=== PATIENT | female | born 1930 | race Caucasian/White ===

== ENCOUNTER 2016-10-06 08:13 | Day surgery (SDC) | payer MEDICARE, OTHER ==
[~2016-10-06] VITALS: Ht 162.6 cm; Wt 55.0 kg
[~2016-10-06 08:13] MED LIST: AMLO5TAB2 PO; LIDOCAINE 1% (10mg/ml) 2ml SDV INJ ONE; LR 1,000 ML IV SCH; PRED10DR15 OP; PROPOFOL 500mg 50 ML IV ONE
--- OUTSIDE RECORDS SUMMARY | 2016-10-06 08:18 | XMS REPORT | Continuity of Care Document ---
Author Author [facility] Organization [facility] Address Unknown Phone Unavailable Support Name Relationship Address Phone MISAEL FIGUEREDO II, MD Caregiver [address] [place] [address] Unavailable ARCHIE GONZALES MD Caregiver [address] [place] [address] Unavailable ARCHIE GONZALES MD Caregiver [address] [place] [address] Unavailable JASVIRMARCELINOSANTANA Next Of Kin [address] [place] [address] Insurance Providers Guarantor ReginaMarlys Address [address] [facility] [address] [place] [address] Email DENIED/NO TO PT PORT Payer [employer] Policy Number [id number] Subscriber's Name Marlys Tapia Relationship 18 Self Group Number PLANE Effective Date 96 Payer Medicare Policy Number [id number] Subscriber's Name Marlys Tapia Relationship 18 Self Effective Date 95 Advance Directives Directive Response Recorded Date/Time Ordered Resuscitation Status Full Code 11/30/15 12:01pm Resuscitation Documents on File Yes 12/01/15 9:21am DPOA for Healthcare Only Yes 12/01/15 9:21am Problems Active Problems Medical Problem Onset Date Status Degenerative arthritis of hip Unknown Chronic Hypertension Unknown Medications Current Home Medications Medication Dose Units Route Directions Days Qty Instructions Start Date Acetaminophen (Tylenol) 325 Mg Tablet 650 Mg Oral Four Times Daily 100 Tablet 12/02/15 Amlodipine Besylate 5 Mg Tablet 5 Mg Oral Daily 11/12/15 Aspirin (Aspirin Ec) 325 Mg Tablet. 325 Mg Oral Twice A Day 84 Tablet 12/02/15 Polyethylene Glycol 3350 (Healthylax) 17 Gm Powd.pack 17 Gm Oral Daily 30 Packet 12/02/15 Tramadol Hcl (Ultram) 50 Mg Tablet 50-100 Mg Oral Every 4 Hours as needed for Pain 60 Tablet 06/22/16 Past Home Medications Medication Directions Ordered Status Benazepril/Hydrochlorothiazide (Benazepril-Hctz 20-12.5 Mg Tab) 1 Each Tablet, 1 Tab Oral Daily 11/12/15 Discontinued Social History Social History Problem Response Recorded Date/Time Onset Date Status Chewing Tobacco Status No 12/01/2015 9:24am Not Applicable Not Applicable Hx Substance Use No 12/01/2015 9:24am Not Applicable Not Applicable Hx Alcohol Use No 12/01/2015 9:24am Not Applicable Not Applicable Has the pt used tobacco in the last 12 months No 12/01/2015 9:24am Not Applicable Not Applicable Query Response Start Date Stop Date Smoking Status Never smoker Hospital Discharge Instructions Instructions: Care Instructions: Reason for Hospitalization: Left total hip I was in the hospital because (patient own words): LEFT HIP REPLACEMENT Discharge Diet: regular Discharge Activity: WEIGHT BEARING TOLERATED Follow Up Appointments: Please make a follow up appointment with your PRIMARY CARE PROVIDER by next Monday to re evaluate your Benzapril/HCTZ. This was held due to hypotension and mild hyponatremia Pending Lab / Results: Follow up w/ your PCP Patient Instructions: draw a BMP 12/11/15 to follow up on hyponatremia Condition at time of discharge: Good Plan of Care Discharge Date 12/02/15 3:22pm Disposition 01 DISCHARGED HOME, SELF-CARE Instructions/Education Provided [facility] Postop Instructions DI for Hyponatremia Hyponatremia-Adult Prescriptions See Medication Section Additional Instructions/Education draw a BMP on12/11/15 and follow up with your PCP on hyponatremia and use of Benazapril/HCTZ. Care Plan and Goals See Discharge Instructions Section Functional Status Query Response Date Recorded Mobility Status Ambulatory w/assist December 02, 2015 1:31pm Assistive Devices Front Wheeled Walker December 02, 2015 1:31pm Activity Limitations Weakness December 02, 2015 1:31pm Feeding Ability Independent December 02, 2015 1:31pm Toileting Ability Assist December 01, 2015 2:21pm Grooming Ability Assist December 02, 2015 1:31pm Dressing Ability Assist December 02, 2015 1:31pm Driving Ability Dependent December 02, 2015 1:31pm Housework Ability Assist December 02, 2015 1:31pm Meal Preparation Ability Assist December 02, 2015 1:31pm Stair Climbing Ability Assist December 02, 2015 1:31pm Ability to complete ADL's impeded by No change December 02, 2015 1:31pm Cognitive/Perceptual Impairments Impaired vision December 02, 2015 1:31pm Visual Assistive Devices Glasses December 01, 2015 2:21pm Allergies, Adverse Reactions, Alerts No known allergies. Immunizations Query Response on File Recorded Date/Time Hx Influenza Vaccination Y FALL 201412/01/15 9:24am Hx Pneumococcal Vaccination Y SEVERAL YEARS AGO 12/01/15 9:24am Hx Influenza Vaccination Y fall 201412/01/15 9:24am Vital Signs Acute Vital Signs Vital Response Date/Time Temperature (Fahrenheit) 95.5 deg F (96.8 - 99.1) 12/02/2015 12:06pm Temperature (Calculated Celsius) 35.26773 degrees C (36.0 - 37.3) 12/02/2015 12:06pm Temperature Source Oral 12/02/2015 12:06pm Pulse Rate (adult) 70 bpm (60 - 100) 12/02/2015 12:06pm Respiratory Rate 14 breaths/min (10 - 20) 12/02/2015 12:06pm O2 Sat by Pulse Oximetry 99 % (90 - 100) 12/02/2015 12:06pm Oxygen Delivery Method Room Air 12/02/2015 12:06pm Oxygen Delivery Method Room Air 12/01/2015 4:20pm Blood Pressure 102/58 mm Hg 12/02/2015 12:06pm Blood Pressure Source Automatic Cuff 12/02/2015 12:06pm Height (Feet) 5 feet 12/02/2015 9:01am Height (Inches) 5.00 inches 12/02/2015 9:01am Weight (Kilograms) 57.000 kg 12/02/2015 12:55pm Body Mass Index (BMI) 20.7 12/01/2015 9:00am Results Laboratory Results Test Name Result Units Flags Reference Collection Date/Time Result Date/ Time Comments White Blood Count 12.5 T/MM3 H 4.5-11.0 12/02/2015 4:39am 12/02/2015 5: 08am Red Blood Count 3.02 M/MM3 L 4.00-5.20 12/02/2015 4:39am 12/02/2015 5: 08am Hemoglobin 9.1 GM/DL L 12-16 12/02/2015 4:39am 12/02/2015 5:08am Hematocrit 28.4 % L 36-46 12/02/2015 4:39am 12/02/2015 5:08am Mean Corpuscular Volume 94.0 UM3 80-100 12/02/2015 4:39am 12/02/2015 5: 08am Mean Corpuscular Hemoglobin 30.1 UUG 26-34 12/02/2015 4:39am 2015 5:08am Mean Corpuscular Hemoglobin Concent 32.0 GM/DL 31-37 12/02/2015 4:39am 12/02/2015 5:08am RDW Standard Deviation 43.6 FL 36.9-50.2 12/02/2015 4:39am 12/02/2015 5 :08am Platelet Count 181 T/MM3 130-400 12/02/2015 4:39am 12/02/2015 5:08am Mean Platelet Volume 10.4 UM3 9.4-12.4 12/02/2015 4:39am 12/02/2015 5: 08am Icterus Index < 2 0-7 12/02/2015 4:39am 12/02/2015 5:38am Chemistry Specimen Hemolysis < 15 0-25 12/02/2015 4:39am 12/02/2015 5 :38am 0-25: Specimen Exhibited No Hemolysis. Turbidity < 20 0-20 12/02/2015 4:39am 12/02/2015 5:38am Sodium Level 132 MEQ/L D L 134-144 12/02/2015 4:39am 12/02/2015 6:10am Potassium Level 4.6 MEQ/L 3.6-5 12/02/2015 4:39am 12/02/2015 5:38am Chloride Level 104 MEQ/L 98-107 12/02/2015 4:39am 12/02/2015 5:38am Carbon Dioxide Level 25 MEQ/L 22-30 12/02/2015 4:39am 12/02/2015 5: 38am Anion Gap 3 MEQ/L L 5-15 12/02/2015 4:39am 12/02/2015 5:38am Blood Urea Nitrogen 19.0 MG/DL H 7-17 12/02/2015 4:39am 12/02/2015 5: 38am Creatinine 0.7 MG/DL 0.7-1.2 12/02/2015 4:39am 12/02/2015 5:38am BUN/Creatinine Ratio 27 RATIO H 6-26 12/02/2015 4:39am 12/02/2015 5: 38am Glomerular Filtration Rate Calc 80 12/02/2015 4:39am 12/02/2015 5: 38am Glucose Level 111 MG/DL H 65-110 12/02/2015 4:39am 12/02/2015 5:38am Calculated Osmolality 258 MOSM/KG L 261-280 12/02/2015 4:39am 2015 5:38am Calcium Level 9.0 MG/DL 8.4-10.2 12/02/2015 4:39am 12/02/2015 5:38am Name: MARLYS TAPIA Unit #: [id number] : [id number] Sex: F Admit Date: 12/01/15 Loc / Svc: SRG Discharge Date: DIAGNOSTIC IMAGING REPORT Report #: [id number] [place] [place], [place] Indication: ITS.REASON: POSTOP left hip replacement PROCEDURE: PELVIS W/1 VIEW LT HIP: Encounter: Initial Comparison: None Findings: Postoperative changes of left total hip replacement are seen. There is expected postoperative subcutaneous gas. No evidence of hardware failure or acute fracture. No retained radiopaque surgical instruments or sponges seen. Impression: New left total hip prosthesis without evidence of immediate complication. . Procedures Procedure Status Date Provider(s) CHEST X-RAY 2VW FRONTAL&LATL Completed 11/06/15 Total replacement of left hip joint Completed 12/01/15 ARCHIE GONZALES MD Encounters Encounter Location Arrival/Admit Date Discharge/Depart Date Attending Provider Discharged Inpatient [facility] 12/01/15 8:42am 12/02/15 3:22pm ARCHIE GONZALES MD Registered Clinic [facility] 11/06/15 11:00am MISAEL FIGUEREDO II, MD
[2016-10-06 08:20] VITALS: BP 162/81; PULSE 74; RESP 16; TEMP 97.2; O2SAT 96
[2016-10-06 08:39] VITALS: Ht 162.6 cm; Wt 55.0 kg
--- NOTE | 2016-10-06 08:43 | ANESPREOP ---
Anesthesia Record Date and Time DATE: 10/06/16 TIME: 08:40 Pre-Op Diagnosis History of polyps Proposed Surgical Procedure COLONOSCOPY NPO since: Midnight Allergies: Coded Allergies: No Known Allergies (Verified , 02/08/08) Ht/Wt/BMI Height: 5 ' 5.00 " Weight: kg BMI: kg/m2 Vital Signs Date Time Temp Pulse Resp B/P Pulse Ox O2 Delivery O2 Flow Rate FiO2 10/06/16 08:20 97.2 74 16 162/81 96 Room Air Medications Inpatient Medications Current Medications Medications (Trade) Dose Ordered Sig/Velasquez Start Time Stop Time Status Last Admin Dose Admin Lactated Ringer's (Lactated Ringers) 1,000 ml @ 50 mls/hr Q20H 10/06/16 07:00 Amlodipine Besylate (Amlodipine Besylate) 5 Mg Tablet, 5 MG PO DAILY, (Reported) Last Taken: on 10/06/16 0700 Prednisolone Acetate (Omnipred) 10 Ml Drops.susp, 1 DROP OP QID, (Reported) Last Taken: on 10/06/16 0700 Currently on Beta Tammie: No Medical/Surgical History Anesthesia PMH: Reports: *Hypertension, Arthritis (LEFT HIP), Hyperlipidemia, Denies: *Angina, *Diabetes, *VA, Anesthesia Reactions (NO KNOWN AIRWAY ISSUES), Blood Transfusion Reac, CHF, Cancer, Clotting Problems, Deep Vein Thrombosis, Glaucoma, Malignant Hyperthermia, Renal Disease, Sleep Apnea, Thyroid Disease Smoking Status: Never smoker Has pt. smoked today?: No Use Chewing Tobacco?: No Second Hand Exposure: No Substance Use Type: does not use Alcohol Intake: none HX of Last Menstrual Period: AGE 54 Past Surgical History Orthopedic Surgeries: Yes - KHUSHI BUNIONECTOMIES; HAMMERTOE,L TKA Abdominal Surgeries: Genitourinary Surgeries: Cardiac Surgeries: Endocrine Surgeries: Reproductive Surgeries: Yes - BENIGN MASS LT BREAST Neurological Surgeries: Ear Surgeries: Nose Surgeries: Throat Surgeries: Other Surgeries: Yes - COLONOSCOPYS Anesthesia Adverse Reactions: FOUND none Family Hx of Anesthesia Advers: none Hx of Motion Sickness: No Pertinent Findings EKG Rhythm: Sinus Rhythm Physical Exam Respiratory: Lungs clear Cardiovascular: FOUND Regular rate, rhythm Airway Assessment Mallampati Score: II TMD: 3 Fingerbreadths Neck Extension: Fair Teeth: Upper Dentures, Partial Lower Dentures Overall Assessment: No Airway Concerns ASA: 2 Plan Anesthesia Plan: TIVA Discussion Discussed risks/options/alternatives of anesthesia and questions answered. Patient consents. Nursing pain assessment noted. Attestation Statement Prior to the delivery of any anesthetic medication, I examined the patient, developed the plan, obtained the patient's consent and discussed the risk and benefits of the procedure with the patient/guardian. RADHA CARROLL SENIOR REPORT DEVELOPER Oct 06, 2016 08:43
[2016-10-06 10:28] VITALS: BP 90/56; PULSE 61; RESP 16; TEMP 98; O2SAT 98
[2016-10-06 10:38] VITALS: BP 94/50
[2016-10-06 10:45] VITALS: BP 99/57; PULSE 55; RESP 18; O2SAT 98
--- NOTE | 2016-10-06 10:50 | ANESPO ---
Post-Op Note Date 10/06/16 Time: 10:50 Status Pt Participated in Evaluation: Pt participated in person Vital Signs Date Time Temp Pulse Resp B/P Pulse Ox O2 Delivery O2 Flow Rate FiO2 10/06/16 10:45 55 18 99/57 98 Room Air 10/06/16 10:28 98.0 6.00 Respiratory Function: Airway patent Cardiovascular Function: Regular pulse Telemetry Pattern: SR Mental Status: Alert/oriented Pain Level Intensity: 0 Unable to Assess Pain Due To: Pt Sleeping Hydration: IV infusing Complications during Recovery None apparent Follow-Up Instructions Instructions Per Surgeon RADHA CARROLL CRNA Oct 06, 2016 10:50
[2016-10-06 11:01] VITALS: BP 140/66; PULSE 62; RESP 16; O2SAT 99
[2016-10-06 11:15] VITALS: BP 140/76; PULSE 60; RESP 17; O2SAT 97
--- NOTE | 2016-10-06 19:50 | OPNOTEF ---
DATE OF PROCEDURE: 10/06/2016 SURGEON: Chris Ferreira MD PREOPERATIVE DIAGNOSIS Family history for colon cancer within a first degree relative. POSTOPERATIVE DIAGNOSIS Family history for colon cancer within a first degree relative, normal colonoscopy. PROCEDURE: Colonoscopy. ANESTHESIA: TIVA BRIEF HISTORY/INDICATIONS Marlys is an 86-year-old female patient of mine who was seen for comprehensive exam. We discussed her family history of colon cancer along with her life expectancy and decided to proceed with a colonoscopy today. Please refer to office notes for details. FINDINGS Upon colonoscopy, there was no evidence for angiodysplastic lesions, polyps, diverticula or delma malignancies. DESCRIPTION OF PROCEDURE After informed consent was obtained, the patient was brought to the endoscopy suite and placed on the table in left lateral decubitus position. The patient subsequently underwent total intravenous anesthesia by the nurse park maintenance technician per my request. Next, a digital rectal examination was performed. Normal sphincter tone. No rectal masses were appreciated. An Olympus colonoscope was inserted in the anus and advanced with the lumen of the colon under direct visualization at all times until the cecum was ascertained. Triangulation of the tenia coli, ileocecal valve and appendiceal lumen were all visualized. The scope was then slowly withdrawn, again while maintaining visualization of the lumen at all times. As stated above, the entire colon was without evidence for angiodysplastic lesions, polyps, diverticula or delma malignancies. The scope continued to be withdrawn until it was brought back into the patient's anal verge. A J-maneuver was then performed. No worrisome perianal pathology was noted. The scope was subsequently withdrawn. The patient tolerated the procedure without difficulty and was sent back to the preop area in stable condition. Secondary to the absence of findings upon this colonoscopy, the patient would not undergo a repeat colonoscopy until five years from now based on her family history. That would make Marlys 89 years old and I think it is very unlikely we will follow through with that colonoscopy. Today she had no polyps, no signs of precancerous lesions. MINISTERIO
== END 2016-10-06 11:35 | disposition home or self-care (01) ==
LOC: NSC 08:13
PROVIDERS: ATTEND Family Medicine
DX: Z12.11 Encounter for screening for malignant neoplasm of colon (principal); Z80.0 Family history of malignant neoplasm of digestive organs; I10 Essential (primary) hypertension; E78.5 Hyperlipidemia, unspecified; J30.2 Other seasonal allergic rhinitis; Z79.899 Other long term (current) drug therapy
CPT/HCPCS: G0105; J7120